=== PATIENT | male | born 1995 | race Caucasian/White ===

== ENCOUNTER 2023-08-31 23:57 | Emergency (ER) | payer OTHER, SELFPAY ==
[2023-09-01 00:04] VITALS: BP 153/88; PULSE 96; RESP 20; TEMP 36.4; O2SAT 100; BMI 23.6
--- NOTE | 2023-09-01 00:14 | ED.FALL ---
HPI - Fall General Chief Complaint: Fall Stated Complaint: hit head Time Seen by Provider: 09/01/23 00:13 Source: patient Mode of arrival: Ambulatory History of Present Illness HPI Narrative: 28-year-old male who is here for evaluation of injuries that he sustained when earlier today he was snowboarding. He states that he hit another individual. He was wearing a helmet. He is unsure whether not he cracked his helmet but he did sustain a contusion to his right forehead. He did vomit 1 time but that was several hours after the event when he tried to eat something. He is still somewhat nauseous but has not vomited since then. No reported loss of consciousness. No amnesia from the event. Also injured his right knee but he has been ambulatory. He describes upper back discomfort. No abdominal pain. No headache Related Data Allergies Allergy/AdvReac Type Severity Reaction Status Date / Time No Known Drug Allergies Allergy Verified 09/01/23 00:22 Review of Systems Constitutional Constitutional: Reports system reviewed and no additional complaints, except as documented Cardiovascular Cardiovascular: Reports system reviewed and no additional complaints, except as documented Respiratory Respiratory: Reports system reviewed and no additional complaints, except as documented Musculoskeletal Musculoskeletal: Reports system reviewed and no additional complaints, except as documented Integumentary/Breasts Skin/Breast: Reports system reviewed and no additional complaints, except as documented Neurologic Neurologic: Reports system reviewed and no additional complaints, except as documented Hematologic/Lymphatic On Anticoagulants: No Patient History Social History Smoking Status: Former smoker Smoking Status: Former smoker Substance Use Type: does not use Exam Initial Vital Signs Initial Vital Signs: Vital Signs Temperature 97.6 F 09/01/23 00:04 Pulse Rate 96 H 09/01/23 00:04 Respiratory Rate 20 09/01/23 00:04 Blood Pressure 153/88 H 09/01/23 00:04 Pulse Oximetry 100 09/01/23 00:04 Oxygen Delivery Method Room Air 09/01/23 00:04 Const General: cooperative, comfortable and No ill appearing HENMT Head: contusion (Above right eye) Ears: TM's normal bilaterally Face and sinus: normal facial exam Mouth: oral mucosae normal Eyes Periorbital: periorbital findings normal Neck Neck: normal visual inspection Resp Effort & Inspection: normal respiratory effort Auscultation: clear to auscultation bilaterally Cardio Rate: regular rate Rhythm: regular rhythm GI Inspection: normal to inspection and non-distended Back/Spine/Pelvis Cervical Spine: cervical muscular tenderness (Right-sided paraspinal) and No cervical spinal tenderness Thoracic/Lumbar Spine: No thoracic spinal tenderness and No lumbar spinal tenderness Skin Other: Contusion above right eye Neuro General: patient alert, patient awake, patient oriented x3 and moves all extremities Extrem Other: Mild discomfort behind the right knee but is able to do a straight leg raise. Able to bend his knee. Has been ambulatory. Scores [place] CT Head Rule Age <16 years old: No Patient on blood thinners: No Seizure after injury: No Exclusion: Patient NOT Excluded, Proceed to next steps GCS < 15 at 2 hr post trauma: No Suspected open or depressed skull fracture: No Any sign of basilar skull fracture (hemotympanum, raccoon eyes, Tony's sign, CSF teetee-/rhinorrhea): No Two or more episodes of vomiting: No Age greater or equal to 65 years: No Retrograde amnesia to the event greater or equal to 30 min: No Dangerous Mechanism (pedestrian vs. mv, occupant ejected from mv, fall from >3 ft or > 5 stairs): No Recommendation: CT unnecessary GCS [place] coma scale eye opening: Spontaneous [place] coma scale verbal response: Orientated [place] coma scale motor response: Obey commands Juan coma scale total score: 15 Nexus Score for C-Spine Focal Neurologic deficit present: No Midline spinal tenderness present: No Altered level of conciousness present: No Intoxication present: No Distracting Injury Present: No Nexus Criteria for C-spine: 0 Course Vital Signs Vital signs: Vital Signs - 8 hr 09/01/23 00:04 Temperature 97.6 F Pulse Rate 96 H Respiratory Rate 20 Blood Pressure 153/88 H Pulse Oximetry 100 Oxygen Delivery Method Room Air MDM - Fall MDM Narrative Medical decision making narrative: Cervical spine cleared by nexus criteria. Patient is low risk per the [place] head CT rule. Contusion above right eye needs no specific interventions here in the ER. He is ambulatory. The patient does not meet criteria for any imaging studies. We discussed closed head injuries. Discussed that he was going to be more sore tomorrow and that he needs to follow-up with his medical department. He was given return precautions. He expressed understanding and agreement. Discharge Plan Departure Patient Disposition: Home Clinical Impression: Forehead contusion, Cervical muscle strain Instructions: DI for Contusion Activity Restrictions/Additional Instructions: You can eat like normal and sleep like normal. You can take Tylenol/ibuprofen for any discomfort. I would not be surprised if you were more sore tomorrow than what you are today. Conservative measures such as heat/ice and massage as appropriate. You do need follow-up with your medical department for any work-related restrictions extending past 24 hours of SIQ. Referrals: ProviderChandana [Primary Care Provider] - Stand Alone Forms: Patient Portal/API, Work Release Note
== END 2023-09-01 00:39 | disposition home or self-care (01) ==
PROVIDERS: Emergency Provider Emergency Medicine
DX: S00.83XA Contusion of other part of head, initial encounter (principal); S16.1XXA Strain of muscle, fascia and tendon at neck level, initial encounter; M54.6 Pain in thoracic spine; W19.XXXA Unspecified fall, initial encounter; Y93.23 Activity, snow (alpine) (downhill) skiing, snowboarding, sledding, tobogganing and snow tubing
CPT/HCPCS: 99281; 99282

== ENCOUNTER → 2024-01-01 12:03 | Outpatient (CLI) | payer OTHER, SELFPAY ==
--- NOTE | 2024-01-01 12:04 | DI.MRI.S_ITS ---
PROCEDURE: MR WRIST RT WO CON INDICATIONS: Pain in right wrist TECHNIQUE: Noncontrast coronal proton density fast spin echo and T2 fast spin echo with fat saturation; coronal 3-D gradient echo, axial T1 spin echo and T2 fast spin echo with fat saturation, sagittal T1 spin echo through the wrist. COMPARISON: None. FINDINGS: Image quality: Excellent. Bones and cartilage: The carpal bones are normally aligned. No bone marrow contusions or fractures. No evidence for avascular necrosis. Overlying cartilage surfaces appear normal. Carpal ligaments: The scapholunate and lunotriquetral ligaments appear intact. In the absence of intra-articular contrast, the extrinsic carpal ligaments are not well identified. On sagittal images, the pisohamate ligament appears intact. Triangular fibrocartilage complex: Subtle signal abnormality involving triangular fibrocartilage near its ulnar insertion is seen concerning for subtle TFC tear. The adjacent meniscal homolog appears normal in the absence of intra-articular contrast. The extensor carpi ulnaris tendon is thickened at the level of ulnar styloid with subtle intrasubstance T2 hyperintense signal. Tendons and soft tissues: The carpal tunnel structures appear normal, including the median nerve. The ulnar nerve appears normal within Guyon's canal. All six extensor tendon compartments demonstrate normal morphology, without pathologic tendon sheath fluid. No soft tissue ganglion cysts. IMPRESSION: 1. No marrow edema. No fracture or dislocation. No evidence of avascular necrosis. 2. Scapholunate and lunotriquetral ligaments are intact. 3. Finding is concerning for subtle TFC tear near its ulnar insertion. 4. Tendinosis and low-grade intrasubstance partial-thickness tear involving extensor carpi ulnaris tendon at the level of ulnar styloid. Rest of the extensor and flexor tendons are intact. Dictated by: Quan Mohan M.D. on 01/01/2024 at 13:24 Approved by: Quan Mohan M.D. on 01/01/2024 at 13:26
== END ==
PROVIDERS: Referring Provider Nurse Practitioner Family; Visit Provider Nurse Practitioner Family
DX: S66.318A Strain of extensor muscle, fascia and tendon of other finger at wrist and hand level, initial encounter (principal); M25.531 Pain in right wrist
CPT/HCPCS: 73221